=== PATIENT | male | born 1990 | race Caucasian/White ===

== ENCOUNTER 2018-08-15 15:12 | Emergency (ER) | payer BC ==
[~2018-08-15] VITALS: Ht 172.7 cm; Wt 105.9 kg
[2018-08-15 15:23] VITALS: TEMP 97.9
[2018-08-15 18:55] VITALS: BP 125/76; PULSE 87
== END 2018-08-15 18:55 | disposition home or self-care (01) ==
LOC: COL.ER 15:12
DX: S43.085A Other dislocation of left shoulder joint, initial encounter (principal); X50.0XXA Overexertion from strenuous movement or load, initial encounter; Y92.39 Other specified sports and athletic area as the place of occurrence of the external cause
CPT/HCPCS: J1170; J1885; J2060; J2250; J2704; J2765; J3010